=== PATIENT | male | born 1970 | race Caucasian/White ===

== ENCOUNTER 2020-11-15 10:55 | Inpatient (IN) | payer SELFPAY ==
[~2020-11-15 10:55] MED LIST: Iopamidol 370 76% 50 ML VIAL FS ONE; Iopamidol-370 76% 500 ML 1 ML ONE
[2020-11-15 12:41] LABS: #Eosinphils 0.1 thou/uL (0.0-0.7); #Lymphocytes 2.5 thou/uL (1.20-3.40); #Monocytes 1.1 thou/uL (0.11-0.59); #Neutrophils 13.5 thou/uL (1.40-6.50); %Basophils 0.2 % (0.0-1.0); %Eosinophils 0.8 % (0.0-10.0); %Lymphocytes 14.3 % (21.0-51.0); %Monocytes 6.3 % (0.0-10.0); %Neutrophils 78.4 % (42.0-75.0); Hemoglobin 18.4 g/dL (14.0-18.0); Mean Corpuscular HGB CONC 34.1 g/dL (32.0-36.0); Mean Corpuscular Hemoglobin 30.6 pg (27.0-31.0); Mean Corpuscular Volume 89.7 fL (78.0-98.0); Mean Platelet Volume 10.4 fL (7.4-10.4); Platelet Count 186 thou/uL (130-400); RBC Distribution Width 13.7 % (11.5-14.5); Red Blood Cell (RBC) Count 6.01 mill/uL (4.70-6.10); White Blood Cell (WBC) Count 17.2 thou/uL (4.8-10.8)
[2020-11-15 12:44] LABS: ALT (SGPT) 85 U/L (8-55); AST (SGOT) 51 U/L (5-34); Albumin 4.8 g/dL (3.5-5.0); Alkaline Phosphatase 91 U/L (40-110); Anion Gap 17 mmol/L (10-20); BUN (Urea Nitrogen) 20 mg/dL (8.4-25.7); Calc. Creatinine Clearance 0 mL/min (70-130); Carbon Dioxide 25 mmol/L (22-29); Chloride 98 mmol/L (98-107); Globulin 3.9 g/dL (2.4-3.5); Glucose 102 mg/dL (70-105); Potassium 3.8 mmol/L (3.5-5.1); Protein, Total 8.7 g/dL (6.0-8.3); Sodium 136 mmol/L (136-145)
[2020-11-15] MEDS ORDERED: Ondansetron PF 4 MG/2 ML Vial ONE ×2 (13:22→14:57)
[2020-11-15] MEDS ORDERED: Morphine 4 MG/ML VIAL ONE (14:57)
[2020-11-15] MEDS ORDERED: Ondansetron PF 4 MG/2 ML Vial IVP PRN (15:25)
[2020-11-15] MEDS ORDERED: Ondansetron ODT 4 MG TAB PO PRN (15:25)
[2020-11-15] MEDS ORDERED: Calcium Carbonate 500 MG ChewTAB PO PRN (15:34)
[2020-11-15 17:30] VITALS: BMI 32.1
[2020-11-15] MEDS: Dexamethasone 4 MG in Sodium Chloride 0.9% 50 ML IVPB SCH (18:30)
[2020-11-15 20:39] LABS: HBSAg Index 0.21 S/CO (0-0.99); HIV (1/2) Antibody/Antigen Non-Reactive (NonReactive); HIV 1/2 INDEX 0.12 S/CO (<1.00); Hep B Surf Ag Non-Reactive S/CO (NonReactive); Hep C IgG Ab Non-Reactive (NonReactive); Hep C Index 0.07 S/CO (0-0.79); Syphilis Antibody Nonreactive (Nonreactive); Syphilis Antibody Index 0.04 S/CO (<1.00 Non-Reactive)
[2020-11-15] MEDS: Famotidine 20 MG TAB PO SCH (20:49)
[2020-11-15 23:24] LABS: SARS-CoV-2 PCR NAA for Saliva Not Detected (NotDetected)
[2020-11-16] MEDS: Acetaminophen 325 MG TAB PO PRN ×3 (00:01→19:32)
[2020-11-16] MEDS: Dexamethasone 4 MG in Sodium Chloride 0.9% 50 ML IVPB SCH ×4 (00:02→17:43)
[2020-11-16 05:44] LABS: #Lymphocytes 1.7 thou/uL (1.20-3.40); #Monocytes 0.2 thou/uL (0.11-0.59); %Basophils 0.3 % (0.0-1.0); %Eosinophils 0.2 % (0.0-10.0); %Monocytes 1.7 % (0.0-10.0); %Neutrophils 83.8 % (42.0-75.0); Mean Corpuscular HGB CONC 32.7 g/dL (32.0-36.0); Mean Corpuscular Hemoglobin 29.4 pg (27.0-31.0); Mean Platelet Volume 10.6 fL (7.4-10.4); Platelet Count 165 thou/uL (130-400); RBC Distribution Width 13.5 % (11.5-14.5); Red Blood Cell (RBC) Count 5.79 mill/uL (4.70-6.10); White Blood Cell (WBC) Count 11.9 thou/uL (4.8-10.8)
[2020-11-16 06:07] LABS: ALT (SGPT) 70 U/L (8-55); AST (SGOT) 33 U/L (5-34); Albumin 4.3 g/dL (3.5-5.0); Alkaline Phosphatase 80 U/L (40-110); Anion Gap 14 mmol/L (10-20); BUN (Urea Nitrogen) 17 mg/dL (8.4-25.7); Bilirubin, Total 0.6 mg/dL (0.2-1.2); Calc. Creatinine Clearance 153 mL/min (70-130); Calcium 9.6 mg/dL (7.8-10.44); Carbon Dioxide 22 mmol/L (22-29); Chloride 103 mmol/L (98-107); Globulin 3.7 g/dL (2.4-3.5); Glucose 115 mg/dL (70-105); Potassium 4.5 mmol/L (3.5-5.1); Sodium 134 mmol/L (136-145)
[2020-11-16] MEDS ORDERED: Enoxaparin Sodium 40 MG/0.4 ML SYRINGE SC SCH (09:00)
[2020-11-16] MEDS: Famotidine 20 MG TAB PO SCH ×2 (09:30→20:58)
[2020-11-16] MEDS ORDERED: Magnevist 469MG/ML 20 ML VIAL ONE (10:35)
[2020-11-17] MEDS: Acetaminophen 325 MG TAB PO PRN (00:27)
[2020-11-17] MEDS: Dexamethasone 4 MG in Sodium Chloride 0.9% 50 ML IVPB SCH ×4 (00:28→19:08)
[2020-11-17 05:38] LABS: PTT 32.9 sec (22.9-36.1); Prothrombin Time 13.5 sec (12.0-14.7)
[2020-11-17] MEDS ORDERED: Fentanyl 100 MCG/2 ML VIAL ONE (07:45)
[2020-11-17] MEDS ORDERED: Midazolam HCl 2 mg/2 ml Vial ONE (07:45)
[2020-11-17] MEDS ORDERED: Sodium Bicarbonate 2.5 MEQ/5 ML VIAL ONE (07:45)
[2020-11-17] MEDS ORDERED: Ondansetron PF 4 MG/2 ML Vial ONE (08:09)
[2020-11-17] MEDS ORDERED: Diclofenac 1% 100 GM GEL TP PRN (11:07)
[2020-11-17] MEDS: Famotidine 20 MG TAB PO SCH ×2 (11:30→22:05)
[2020-11-17] MEDS ORDERED: Promethazine 25 MG TAB PO PRN (22:04)
[2020-11-18] MEDS ORDERED: Promethazine HCl 25 MG/ML VIAL IM PRN (00:17)
[2020-11-18] MEDS: Dexamethasone 4 MG in Sodium Chloride 0.9% 50 ML IVPB SCH ×3 (01:57→11:46)
[2020-11-18] MEDS: Famotidine 20 MG TAB PO SCH (07:59)
[2020-11-18] MEDS: Acetaminophen 325 MG TAB PO PRN (07:59)
[2020-11-18 12:37] VITALS: BP 157/88; TEMP 97.3
== END 2020-11-18 12:53 | disposition home or self-care (01) | DRG 54 ==
LOC: ERS 10:55 → 2SE 14:45
PROVIDERS: ADMIT Family Medicine; ATTEND Family Medicine
PROC: 0BBJ3ZX Excision of Left Lower Lung Lobe, Percutaneous Approach, Diagnostic (ICD-10-PCS; principal; 2020-11-17)
DX: C79.31 Secondary malignant neoplasm of brain (principal); I61.4 Nontraumatic intracerebral hemorrhage in cerebellum; Z20.822 Contact with and (suspected) exposure to COVID-19; G93.6 Cerebral edema; C78.02 Secondary malignant neoplasm of left lung; F17.210 Nicotine dependence, cigarettes, uncomplicated; R94.5 Abnormal results of liver function studies; R29.700 NIHSS score 0; Z85.038 Personal history of other malignant neoplasm of large intestine; Z85.048 Personal history of other malignant neoplasm of rectum, rectosigmoid junction, and anus; Z90.49 Acquired absence of other specified parts of digestive tract; Z80.52 Family history of malignant neoplasm of bladder; Z80.0 Family history of malignant neoplasm of digestive organs; Z80.8 Family history of malignant neoplasm of other organs or systems; Z82.49 Family history of ischemic heart disease and other diseases of the circulatory system; Z93.3 Colostomy status; Z92.21 Personal history of antineoplastic chemotherapy; Z92.3 Personal history of irradiation
CPT/HCPCS: 32408; 36415; 70450; 70553; 71045; 71260; 74177; 77012; 80053; 84484; 85025; 85610; 85730; 86707; 86780; 86803; 87340; 87389; 88305; 93005; 96374; 96375; A9579; J1100; J2250; J2270; J2405; J2550; J3010; Q0162; Q0169; Q9967; U0003; U0005

== ENCOUNTER 2020-11-26 10:29 | Inpatient (IN) | payer OTHER, SELFPAY ==
[2020-11-26] MEDS ORDERED: Ondansetron PF 4 MG/2 ML Vial ONE (11:09)
[2020-11-26 11:17] LABS: #Eosinphils 0.1 thou/uL (0.0-0.7); #Lymphocytes 2.2 thou/uL (1.20-3.40); #Monocytes 1.4 thou/uL (0.11-0.59); #Neutrophils 14.7 thou/uL (1.40-6.50); %Basophils 0.2 % (0.0-1.0); %Eosinophils 0.3 % (0.0-10.0); %Monocytes 7.8 % (0.0-10.0); %Neutrophils 79.8 % (42.0-75.0); Hemoglobin 17.2 g/dL (14.0-18.0); Mean Corpuscular HGB CONC 32.9 g/dL (32.0-36.0); Mean Corpuscular Hemoglobin 29.9 pg (27.0-31.0); Mean Platelet Volume 9.7 fL (7.4-10.4); Platelet Count 195 thou/uL (130-400); Red Blood Cell (RBC) Count 5.74 mill/uL (4.70-6.10); White Blood Cell (WBC) Count 18.5 thou/uL (4.8-10.8)
[2020-11-26 11:45] LABS: ALT (SGPT) 188 U/L (8-55); AST (SGOT) 61 U/L (5-34); Albumin 4.1 g/dL (3.5-5.0); Alkaline Phosphatase 90 U/L (40-110); Anion Gap 17 mmol/L (10-20); BUN (Urea Nitrogen) 22 mg/dL (8.4-25.7); Bilirubin, Total 0.5 mg/dL (0.2-1.2); Calc. Creatinine Clearance 0 mL/min (70-130); Calcium 9.7 mg/dL (7.8-10.44); Carbon Dioxide 26 mmol/L (22-29); Chloride 100 mmol/L (98-107); Globulin 3.6 g/dL (2.4-3.5); Glucose 99 mg/dL (70-105); Lipase 38 U/L (8-78); Potassium 4.5 mmol/L (3.5-5.1); Protein, Total 7.7 g/dL (6.0-8.3); Sodium 138 mmol/L (136-145)
[2020-11-26] MEDS ORDERED: Dexamethasone 1 MG TAB PO SCH (15:00)
[2020-11-26] MEDS ORDERED: Acetaminophen 325 MG TAB PO PRN (15:15)
[2020-11-26] MEDS ORDERED: Ondansetron PF 4 MG/2 ML Vial IVP PRN (15:15)
[2020-11-26] MEDS ORDERED: Ondansetron ODT 4 MG TAB SL PRN (15:15)
[2020-11-26] MEDS ORDERED: Promethazine HCl 25 MG SUPP PR PRN (15:16)
[2020-11-26] MEDS ORDERED: Bisacodyl 5 MG TAB PO PRN (15:16)
[2020-11-26] MEDS ORDERED: Polyethylene Glycol 3350 17 GM Packet PO PRN (15:16)
[2020-11-26] MEDS ORDERED: Polyethylene Glycol 3350 17 GM Packet PO SCH (15:16)
[2020-11-26] MEDS ORDERED: Ondansetron ODT 4 MG TAB PO PRN (15:16)
[2020-11-26] MEDS ORDERED: Docusate 100 MG CAP PO PRN (15:16)
[2020-11-26] MEDS ORDERED: Lactated Ringer's 1,000 ML IV SCH (15:16)
[2020-11-26] MEDS: Calcium Carbonate 500 MG ChewTAB PO PRN ×2 (15:29→20:57)
[2020-11-26 15:33] VITALS: BMI 36.9
[2020-11-26] MEDS: Lactated Ringer's 1,000 ML IV SCH (17:24)
[2020-11-26] MEDS: Ondansetron PF 4 MG/2 ML Vial IVP PRN (20:56)
[2020-11-26] MEDS: Famotidine 20 MG TAB PO SCH (21:03)
[2020-11-26] MEDS: Dexamethasone 4 mg/ml Vial SLOW IVP SCH (21:21)
[2020-11-26 22:07] LABS: Prothrombin Time 13.2 sec (12.0-14.7)
[2020-11-26 22:08] LABS: PTT 27.7 sec (22.9-36.1)
[2020-11-27] MEDS: Lactated Ringer's 1,000 ML IV SCH ×4 (02:35→20:24)
[2020-11-27] MEDS: Dexamethasone 4 mg/ml Vial SLOW IVP SCH ×4 (03:07→20:09)
[2020-11-27 04:51] LABS: #Monocytes 0.4 thou/uL (0.11-0.59); #Neutrophils 11.8 thou/uL (1.40-6.50); %Basophils 0.1 % (0.0-1.0); %Eosinophils 0.2 % (0.0-10.0); %Lymphocytes 13.8 % (21.0-51.0); %Monocytes 2.7 % (0.0-10.0); %Neutrophils 83.2 % (42.0-75.0); Hemoglobin 15.3 g/dL (14.0-18.0); Mean Corpuscular HGB CONC 32.9 g/dL (32.0-36.0); Mean Corpuscular Hemoglobin 30.2 pg (27.0-31.0); Mean Corpuscular Volume 91.6 fL (78.0-98.0); Mean Platelet Volume 9.6 fL (7.4-10.4); Platelet Count 176 thou/uL (130-400); Red Blood Cell (RBC) Count 5.08 mill/uL (4.70-6.10); White Blood Cell (WBC) Count 14.2 thou/uL (4.8-10.8)
[2020-11-27 05:06] LABS: Anion Gap 14 mmol/L (10-20); BUN (Urea Nitrogen) 20 mg/dL (8.4-25.7); Calc. Creatinine Clearance 145 mL/min (70-130); Calcium 8.9 mg/dL (7.8-10.44); Carbon Dioxide 24 mmol/L (22-29); Chloride 100 mmol/L (98-107); Glucose 122 mg/dL (70-105); Potassium 4.4 mmol/L (3.5-5.1); Sodium 134 mmol/L (136-145)
[2020-11-27] MEDS: Famotidine 20 MG TAB PO SCH ×2 (09:07→20:22)
[2020-11-27] MEDS: Bisacodyl 5 MG TAB PO SCH ×2 (09:07→20:22)
[2020-11-27] MEDS: Promethazine HCl 6.25 MG/5 ML Syrup PO PRN (09:07)
[2020-11-27] MEDS: Ondansetron PF 4 MG/2 ML Vial IVP PRN (20:09)
[2020-11-27] MEDS: Calcium Carbonate 500 MG ChewTAB PO PRN (20:15)
[2020-11-27 21:14] LABS: SARS-CoV-2 PCR NAA for Saliva Not Detected (NotDetected)
[2020-11-28] MEDS: Dexamethasone 4 mg/ml Vial SLOW IVP SCH ×4 (02:31→21:55)
[2020-11-28] MEDS: Lactated Ringer's 1,000 ML IV SCH ×3 (02:31→17:08)
[2020-11-28] MEDS ORDERED: Ondansetron PF 4 MG/2 ML Vial ONE ×2 (10:20→11:31)
[2020-11-28] MEDS: Famotidine 20 MG TAB PO SCH ×2 (10:36→21:55)
[2020-11-28] MEDS: Bisacodyl 5 MG TAB PO SCH ×2 (10:36→21:55)
[2020-11-28] MEDS ORDERED: CEFAZOLIN 2 GM in Premix Bag 1 BAG IVPB SCH (11:00)
[2020-11-28] MEDS ORDERED: Bacitracin Zinc Ointment 30 gm TUBE ONE (11:05)
[2020-11-28] MEDS ORDERED: Fentanyl 100 MCG/2 ML VIAL ONE ×5 (11:15→14:53)
[2020-11-28] MEDS ORDERED: Rocuronium Bromide 10 MG/ML (10ML VIAL) ONE (11:31)
[2020-11-28] MEDS ORDERED: diphenhydrAMINE 50 MG/ML VIAL ONE (11:31)
[2020-11-28] MEDS ORDERED: PROPOFOL 200 MG/20 ML VIAL ONE (11:31)
[2020-11-28] MEDS ORDERED: PHENYLEPHRINE-NS 100 MCG/ML 10 ML SYRINGE ONE (11:31)
[2020-11-28] MEDS ORDERED: Dexamethasone 20 MG/5 ML VIAL ONE (11:31)
[2020-11-28] MEDS ORDERED: Rocuronium Bromide 50 MG/5 ML VIAL ONE (12:17)
[2020-11-28] MEDS ORDERED: SUGAMMADEX SODIUM 200 MG/2 ML VIAL ONE (13:31)
[2020-11-28] MEDS ORDERED: Acetaminophen 325 MG TAB PO PRN (13:41)
[2020-11-28] MEDS ORDERED: niCARdipine 25 MG in Sodium Chloride 0.9% 250 ML 250 ML IVPB SCH (13:45)
[2020-11-28] MEDS ORDERED: Promethazine HCl 25 MG/ML VIAL IM PRN (13:53)
[2020-11-28] MEDS ORDERED: Promethazine HCl 25 MG/ML VIAL IVPB PRN (13:53)
[2020-11-28] MEDS ORDERED: Ondansetron HCl/PF 4 MG/2 ML Vial IVP PRN (13:53)
[2020-11-28] MEDS ORDERED: HYDROmorphone 2 MG/ML VIAL SLOW IVP PRN (13:53)
[2020-11-28] MEDS ORDERED: Morphine Sulfate 2 MG/ML SYRINGE SLOW IVP PRN (13:53)
[2020-11-28] MEDS ORDERED: PACU-Morphine 4MG/ML VIAL SLOW IVP PRN (13:53)
[2020-11-28] MEDS ORDERED: Meperidine HCl/PF 25 MG/ML VIAL SLOW IVP PRN (13:53)
[2020-11-28] MEDS ORDERED: HYDROmorphone 0.5 MG/0.5 ML SYRINGE ONE ×2 (15:36→16:04)
[2020-11-28] MEDS: Acetaminophen/Codeine 30-300mg Tablet PO PRN ×2 (18:04→21:56)
[2020-11-28] MEDS: Ondansetron PF 4 MG/2 ML Vial IVP PRN (18:05)
[2020-11-28] MEDS: HYDROcodone/Acetaminophen 10/325 mg Tablet PO PRN (19:42)
[2020-11-28] MEDS: Morphine 2 MG/ML VIAL SLOW IVP PRN (23:14)
[2020-11-29] MEDS: HYDROcodone/Acetaminophen 10/325 mg Tablet PO PRN ×3 (01:43→20:31)
[2020-11-29] MEDS: Lactated Ringer's 1,000 ML IV SCH ×2 (01:50→10:14)
[2020-11-29 03:44] LABS: Anion Gap 12 mmol/L (10-20); BUN (Urea Nitrogen) 23 mg/dL (8.4-25.7); Calc. Creatinine Clearance 164 mL/min (70-130); Calcium 7.6 mg/dL (7.8-10.44); Carbon Dioxide 23 mmol/L (22-29); Chloride 101 mmol/L (98-107); Glucose 126 mg/dL (70-105); Potassium 4.2 mmol/L (3.5-5.1); Sodium 132 mmol/L (136-145)
[2020-11-29 03:52] LABS: Band 3 % (5-11); Hemoglobin 15.6 g/dL (14.0-18.0); Lymphocytes 5 % (21-51); MDiff Complete? YES; Mean Corpuscular HGB CONC 33.7 g/dL (32.0-36.0); Mean Corpuscular Hemoglobin 30.6 pg (27.0-31.0); Mean Platelet Volume 9.1 fL (7.4-10.4); Monocytes 1 % (0-10); Neutrophil 91 % (42-75); Platelet Count 181 thou/uL (130-400); RBC Distribution Width 13.6 % (11.5-14.5); White Blood Cell (WBC) Count 20.2 thou/uL (4.8-10.8)
[2020-11-29] MEDS: Dexamethasone 4 mg/ml Vial SLOW IVP SCH ×4 (03:53→20:21)
[2020-11-29] MEDS: Morphine 2 MG/ML VIAL SLOW IVP PRN ×2 (05:14→14:48)
[2020-11-29] MEDS ORDERED: traMADol HCl 50 MG TAB PO PRN (06:33)
[2020-11-29] MEDS: Bisacodyl 5 MG TAB PO SCH ×2 (08:23→20:49)
[2020-11-29] MEDS: Famotidine 20 MG TAB PO SCH ×2 (08:24→20:21)
[2020-11-29] MEDS: traMADol HCl 50 MG TAB PO PRN ×2 (08:25→18:05)
[2020-11-30] MEDS: traMADol HCl 50 MG TAB PO PRN ×4 (01:59→19:37)
[2020-11-30] MEDS: Ondansetron PF 4 MG/2 ML Vial IVP PRN ×4 (02:04→23:49)
[2020-11-30] MEDS: Dexamethasone 4 mg/ml Vial SLOW IVP SCH ×4 (02:05→21:29)
[2020-11-30] MEDS: Morphine 2 MG/ML VIAL SLOW IVP PRN (02:32)
[2020-11-30] MEDS: HYDROcodone/Acetaminophen 10/325 mg Tablet PO PRN ×4 (05:51→23:49)
[2020-11-30] MEDS: Promethazine HCl 6.25 MG/5 ML Syrup PO PRN (05:51)
[2020-11-30 07:25] LABS: Hemoglobin 15.3 g/dL (14.0-18.0); Mean Corpuscular HGB CONC 32.1 g/dL (32.0-36.0); Mean Corpuscular Hemoglobin 29.7 pg (27.0-31.0); Mean Corpuscular Volume 92.6 fL (78.0-98.0); Mean Platelet Volume 9.1 fL (7.4-10.4); Platelet Count 162 thou/uL (130-400); Red Blood Cell (RBC) Count 5.16 mill/uL (4.70-6.10)
[2020-11-30 07:36] LABS: Anion Gap 12 mmol/L (10-20); BUN (Urea Nitrogen) 18 mg/dL (8.4-25.7); Calc. Creatinine Clearance 179 mL/min (70-130); Calcium 8.2 mg/dL (7.8-10.44); Carbon Dioxide 25 mmol/L (22-29); Chloride 98 mmol/L (98-107); Glucose 122 mg/dL (70-105); Potassium 4.6 mmol/L (3.5-5.1); Sodium 130 mmol/L (136-145)
[2020-11-30] MEDS: Famotidine 20 MG TAB PO SCH ×2 (07:38→21:29)
[2020-11-30] MEDS: Bisacodyl 5 MG TAB PO SCH ×2 (07:39→21:28)
[2020-11-30 07:49] LABS: Band 1 % (5-11); Lymphocytes 9 % (21-51); MDiff Complete? YES; Monocytes 6 % (0-10); Neutrophil 84 % (42-75); RBC Morphology Normal
[2020-12-01] MEDS: Dexamethasone 4 mg/ml Vial SLOW IVP SCH ×4 (03:22→20:40)
[2020-12-01] MEDS: traMADol HCl 50 MG TAB PO PRN (03:22)
[2020-12-01] MEDS: HYDROcodone/Acetaminophen 10/325 mg Tablet PO PRN ×2 (05:49→17:09)
[2020-12-01] MEDS: Ondansetron PF 4 MG/2 ML Vial IVP PRN ×2 (05:49→09:30)
[2020-12-01 08:11] LABS: Anion Gap 13 mmol/L (10-20); BUN (Urea Nitrogen) 18 mg/dL (8.4-25.7); Calc. Creatinine Clearance 198 mL/min (70-130); Calcium 8.3 mg/dL (7.8-10.44); Carbon Dioxide 21 mmol/L (22-29); Chloride 100 mmol/L (98-107); Glucose 98 mg/dL (70-105); Potassium 4.7 mmol/L (3.5-5.1); Sodium 129 mmol/L (136-145)
[2020-12-01] MEDS: Bisacodyl 5 MG TAB PO SCH ×2 (09:34→20:40)
[2020-12-01] MEDS: Famotidine 20 MG TAB PO SCH ×2 (09:38→20:38)
[2020-12-01] MEDS: Scopolamine 1.5 mg/72 hour Patch TD SCH (11:55)
[2020-12-01] MEDS ORDERED: Ondansetron ODT 8 MG TAB PO PRN (11:58)
[2020-12-01] MEDS: Promethazine HCl 6.25 MG/5 ML Syrup PO PRN (12:46)
[2020-12-01] MEDS: Acetaminophen/Codeine 30-300mg Tablet PO PRN (20:39)
[2020-12-01] MEDS: Ondansetron HCl/PF 8 MG in Sodium Chloride 0.9% 50 ML IVPB PRN (21:03)
[2020-12-02] MEDS: Dexamethasone 4 mg/ml Vial SLOW IVP SCH ×4 (03:16→20:52)
[2020-12-02] MEDS: Ondansetron HCl/PF 8 MG in Sodium Chloride 0.9% 50 ML IVPB PRN (05:06)
[2020-12-02 05:44] LABS: Anion Gap 15 mmol/L (10-20); BUN (Urea Nitrogen) 18 mg/dL (8.4-25.7); Calc. Creatinine Clearance 190 mL/min (70-130); Calcium 8.6 mg/dL (7.8-10.44); Carbon Dioxide 20 mmol/L (22-29); Chloride 99 mmol/L (98-107); Glucose 102 mg/dL (70-105); Sodium 130 mmol/L (136-145)
[2020-12-02] MEDS ORDERED: Ondansetron ODT 8 MG TAB PO PRN (06:21)
[2020-12-02] MEDS: Bisacodyl 5 MG TAB PO SCH ×2 (09:17→20:52)
[2020-12-02] MEDS: HYDROcodone/Acetaminophen 10/325 mg Tablet PO PRN ×2 (09:17→14:57)
[2020-12-02] MEDS: Famotidine 20 MG TAB PO SCH ×2 (09:19→20:52)
[2020-12-02] MEDS: Promethazine HCl 6.25 MG/5 ML Syrup PO PRN (09:20)
[2020-12-02] MEDS: Ondansetron ODT 8 MG TAB PO SCH ×2 (14:18→20:52)
[2020-12-03] MEDS: Ondansetron ODT 8 MG TAB PO SCH ×3 (04:34→20:55)
[2020-12-03] MEDS: Dexamethasone 4 mg/ml Vial SLOW IVP SCH ×4 (04:34→20:56)
[2020-12-03 05:13] LABS: Anion Gap 15 mmol/L (10-20); BUN (Urea Nitrogen) 23 mg/dL (8.4-25.7); Calc. Creatinine Clearance 166 mL/min (70-130); Calcium 8.6 mg/dL (7.8-10.44); Carbon Dioxide 18 mmol/L (22-29); Chloride 105 mmol/L (98-107); Glucose 105 mg/dL (70-105); Potassium 4.5 mmol/L (3.5-5.1); Sodium 133 mmol/L (136-145)
[2020-12-03] MEDS ORDERED: Ondansetron ODT 8 MG TAB PO PRN (07:16)
[2020-12-03] MEDS: Bisacodyl 5 MG TAB PO SCH (09:45)
[2020-12-03] MEDS: Famotidine 20 MG TAB PO SCH ×2 (09:46→20:56)
[2020-12-03] MEDS ORDERED: Ziprasidone 20 MG VIAL IM PRN ×2 (11:29→11:30)
[2020-12-03] MEDS ORDERED: Ziprasidone 20 MG CAP PO SCH (11:30)
[2020-12-04] MEDS: Dexamethasone 4 mg/ml Vial SLOW IVP SCH ×4 (03:37→20:43)
[2020-12-04] MEDS: Ondansetron ODT 8 MG TAB PO SCH (03:38)
[2020-12-04 05:54] LABS: Anion Gap 14 mmol/L (10-20); BUN (Urea Nitrogen) 18 mg/dL (8.4-25.7); Calc. Creatinine Clearance 172 mL/min (70-130); Calcium 8.2 mg/dL (7.8-10.44); Carbon Dioxide 21 mmol/L (22-29); Chloride 103 mmol/L (98-107); Glucose 111 mg/dL (70-105); Potassium 4.8 mmol/L (3.5-5.1); Sodium 133 mmol/L (136-145)
[2020-12-04] MEDS ORDERED: Ondansetron ODT 4 MG TAB PO PRN (05:54)
[2020-12-04] MEDS: Famotidine 20 MG TAB PO SCH ×2 (09:03→20:43)
[2020-12-04] MEDS: Scopolamine 1.5 mg/72 hour Patch TD SCH (11:07)
[2020-12-05] MEDS: Dexamethasone 4 mg/ml Vial SLOW IVP SCH (03:41)
[2020-12-05] MEDS: HYDROcodone/Acetaminophen 10/325 mg Tablet PO PRN (03:42)
[2020-12-05] MEDS: Famotidine 20 MG TAB PO SCH (09:23)
[2020-12-05] MEDS ORDERED: Dexamethasone 4 mg/ml Vial SLOW IVP SCH (12:00)
[2020-12-05 15:47] VITALS: BP 130/68; TEMP 97.7
== END 2020-12-05 16:54 | disposition home health service (06) | DRG 25 ==
LOC: ERS 10:29 → 2SE 12:23 → OBSVTOIN 11-27 08:54 → CCU 11-28 16:22 → 2SE 11-30 19:22
PROVIDERS: ADMIT Family Medicine; ATTEND Family Medicine
PROC: 00BC0ZZ Excision of Cerebellum, Open Approach (ICD-10-PCS; principal; 2020-11-28)
DX: C79.31 Secondary malignant neoplasm of brain (principal); I61.4 Nontraumatic intracerebral hemorrhage in cerebellum; C18.9 Malignant neoplasm of colon, unspecified; E22.2 Syndrome of inappropriate secretion of antidiuretic hormone; Z20.822 Contact with and (suspected) exposure to COVID-19; K59.00 Constipation, unspecified; R91.8 Other nonspecific abnormal finding of lung field; F17.210 Nicotine dependence, cigarettes, uncomplicated; E86.1 Hypovolemia; R45.850 Homicidal ideations; R45.1 Restlessness and agitation; Z79.899 Other long term (current) drug therapy; Z79.52 Long term (current) use of systemic steroids; Z90.49 Acquired absence of other specified parts of digestive tract; Z80.52 Family history of malignant neoplasm of bladder; Z80.8 Family history of malignant neoplasm of other organs or systems; Z80.0 Family history of malignant neoplasm of digestive organs; Z82.49 Family history of ischemic heart disease and other diseases of the circulatory system; Z98.49 Cataract extraction status, unspecified eye
CPT/HCPCS: 36415; 70450; 80048; 80053; 83690; 83930; 83935; 84300; 85025; 85610; 85730; 88307; 88331; 88341; 88342; 93005; 93010; 96374; 96375; 96376; G0378; J0690; J1100; J1170; J1200; J2270; J2405; J2704; J3010; J3370; J8540; Q0162; Q0169; U0003; U0005

== ENCOUNTER 2020-12-27 11:52 | Inpatient (IN) | payer OTHER ==
[2020-12-27 12:51] LABS: #Lymphocytes 1.6 thou/uL (1.20-3.40); #Monocytes 0.6 thou/uL (0.11-0.59); #Neutrophils 9.3 thou/uL (1.40-6.50); %Basophils 0.1 % (0.0-1.0); %Eosinophils 0.3 % (0.0-10.0); %Lymphocytes 13.9 % (21.0-51.0); %Monocytes 4.8 % (0.0-10.0); %Neutrophils 80.8 % (42.0-75.0); Hemoglobin 17.1 g/dL (14.0-18.0); Mean Corpuscular HGB CONC 33.9 g/dL (32.0-36.0); Mean Corpuscular Hemoglobin 30.7 pg (27.0-31.0); Mean Corpuscular Volume 90.6 fL (78.0-98.0); Mean Platelet Volume 8.7 fL (7.4-10.4); Platelet Count 215 thou/uL (130-400); RBC Distribution Width 13.7 % (11.5-14.5); Red Blood Cell (RBC) Count 5.57 mill/uL (4.70-6.10); White Blood Cell (WBC) Count 11.5 thou/uL (4.8-10.8)
[2020-12-27 13:07] LABS: ALT (SGPT) 98 U/L (8-55); AST (SGOT) 35 U/L (5-34); Albumin 4.1 g/dL (3.5-5.0); Alkaline Phosphatase 117 U/L (40-110); Anion Gap 13 mmol/L (10-20); BUN (Urea Nitrogen) 17 mg/dL (8.4-25.7); Bilirubin, Total 0.8 mg/dL (0.2-1.2); Calc. Creatinine Clearance 0 mL/min (70-130); Calcium 9.5 mg/dL (7.8-10.44); Carbon Dioxide 23 mmol/L (22-29); Chloride 102 mmol/L (98-107); Globulin 3.6 g/dL (2.4-3.5); Glucose 117 mg/dL (70-105); Protein, Total 7.7 g/dL (6.0-8.3); Sodium 134 mmol/L (136-145)
[2020-12-27] MEDS ORDERED: diphenhydrAMINE 50 MG/ML VIAL ONE (14:07)
[2020-12-27] MEDS ORDERED: Metoclopramide 10 MG/10 ML UDCUP ONE ×2 (14:07)
[2020-12-27] MEDS ORDERED: Metoclopramide HCl 10 MG/2 ML VIAL ONE (14:07)
[2020-12-27] MEDS ORDERED: Dexamethasone 10 MG/ML VIAL ONE (14:07)
[2020-12-27] MEDS ORDERED: Ondansetron PF 4 MG/2 ML Vial IVP PRN (17:29)
[2020-12-27] MEDS ORDERED: Bisacodyl 5 MG TAB PO PRN (17:29)
[2020-12-27] MEDS ORDERED: Senokot S 8.6-50 MG TAB PO PRN (17:29)
[2020-12-27] MEDS ORDERED: Lactated Ringer's 1,000 ML IV SCH (17:45)
[2020-12-27 17:50] VITALS: BMI 27.6
[2020-12-27] MEDS: Ketorolac Tromethamine 30 MG/ML VIAL IVP PRN (18:14)
[2020-12-27] MEDS: Dexamethasone 4 mg/ml Vial SLOW IVP SCH (19:39)
[2020-12-27] MEDS: Famotidine/PF 20 mg/2ml Vial SLOW IVP SCH (20:51)
[2020-12-27] MEDS ORDERED: Ketorolac Tromethamine 30 MG/ML VIAL IVP SCH (23:15)
[2020-12-27] MEDS: Melatonin 3 MG TAB PO PRN (23:59)
[2020-12-28] MEDS: Dexamethasone 4 mg/ml Vial SLOW IVP SCH ×4 (06:06→19:46)
[2020-12-28 06:20] LABS: #Eosinphils 0.1 thou/uL (0.0-0.7); #Lymphocytes 1.6 thou/uL (1.20-3.40); #Monocytes 0.5 thou/uL (0.11-0.59); #Neutrophils 7.5 thou/uL (1.40-6.50); %Basophils 0.1 % (0.0-1.0); %Eosinophils 0.5 % (0.0-10.0); %Lymphocytes 16.8 % (21.0-51.0); %Monocytes 4.8 % (0.0-10.0); %Neutrophils 77.9 % (42.0-75.0); Hemoglobin 14.5 g/dL (14.0-18.0); Mean Corpuscular HGB CONC 33.4 g/dL (32.0-36.0); Mean Corpuscular Hemoglobin 30.3 pg (27.0-31.0); Mean Corpuscular Volume 90.8 fL (78.0-98.0); Platelet Count 204 thou/uL (130-400); RBC Distribution Width 13.6 % (11.5-14.5); Red Blood Cell (RBC) Count 4.77 mill/uL (4.70-6.10); White Blood Cell (WBC) Count 9.7 thou/uL (4.8-10.8)
[2020-12-28] MEDS: Ketorolac Tromethamine 30 MG/ML VIAL IVP PRN (07:51)
[2020-12-28] MEDS: Metoclopramide HCl 10 MG/2 ML VIAL IVP PRN (07:52)
[2020-12-28] MEDS: Famotidine/PF 20 mg/2ml Vial SLOW IVP SCH ×2 (09:29→19:46)
[2020-12-28 13:18] LABS: ALT (SGPT) 109 U/L (8-55); AST (SGOT) 37 U/L (5-34); Albumin 3.6 g/dL (3.5-5.0); Alkaline Phosphatase 96 U/L (40-110); Anion Gap 12 mmol/L (10-20); BUN (Urea Nitrogen) 22 mg/dL (8.4-25.7); Bilirubin, Total 0.6 mg/dL (0.2-1.2); Calc. Creatinine Clearance 153 mL/min (70-130); Calcium 8.7 mg/dL (7.8-10.44); Carbon Dioxide 21 mmol/L (22-29); Chloride 104 mmol/L (98-107); Globulin 2.9 g/dL (2.4-3.5); Glucose 179 mg/dL (70-105); Potassium 3.8 mmol/L (3.5-5.1); Protein, Total 6.5 g/dL (6.0-8.3); Sodium 133 mmol/L (136-145)
[2020-12-28] MEDS: HYDROcodone/Acetaminophen 7.5/325 mg Tablet PO PRN ×2 (14:39→19:49)
[2020-12-29] MEDS: Dexamethasone 4 mg/ml Vial SLOW IVP SCH ×2 (02:20→09:32)
[2020-12-29 05:36] LABS: ALT (SGPT) 126 U/L (8-55); AST (SGOT) 43 U/L (5-34); Albumin 3.3 g/dL (3.5-5.0); Alkaline Phosphatase 106 U/L (40-110); Anion Gap 11 mmol/L (10-20); BUN (Urea Nitrogen) 14 mg/dL (8.4-25.7); Bilirubin, Total 0.3 mg/dL (0.2-1.2); Calc. Creatinine Clearance 168 mL/min (70-130); Calcium 8.2 mg/dL (7.8-10.44); Carbon Dioxide 22 mmol/L (22-29); Chloride 107 mmol/L (98-107); Globulin 2.8 g/dL (2.4-3.5); Glucose 131 mg/dL (70-105); Protein, Total 6.1 g/dL (6.0-8.3); Sodium 136 mmol/L (136-145)
[2020-12-29 06:54] LABS: Hemoglobin A1c 5.7 % (4.0-6.0)
[2020-12-29] MEDS: HYDROcodone/Acetaminophen 7.5/325 mg Tablet PO PRN ×4 (09:31→23:17)
[2020-12-29] MEDS: Famotidine/PF 20 mg/2ml Vial SLOW IVP SCH ×2 (09:32→21:10)
[2020-12-29] MEDS: Dexamethasone 4 MG TAB PO SCH ×2 (13:11→21:10)
[2020-12-29] MEDS ORDERED: Dexamethasone 4 MG TAB PO SCH (14:00)
[2020-12-29] MEDS: Metoclopramide HCl 10 MG/2 ML VIAL IVP PRN (14:41)
[2020-12-29] MEDS ORDERED: HYDROcodone/Acetaminophen 5/325 mg Tablet PO SCH (14:45)
[2020-12-30] MEDS: Ondansetron HCl/PF 8 MG in Sodium Chloride 0.9% 50 ML IVPB PRN ×2 (01:24→12:51)
[2020-12-30] MEDS: Dexamethasone 4 MG TAB PO SCH ×4 (03:13→20:06)
[2020-12-30] MEDS: HYDROcodone/Acetaminophen 7.5/325 mg Tablet PO PRN ×4 (03:15→20:07)
[2020-12-30] MEDS: Metoclopramide HCl 10 MG/2 ML VIAL IVP PRN (08:18)
[2020-12-30] MEDS: Famotidine/PF 20 mg/2ml Vial SLOW IVP SCH ×2 (09:07→20:06)
[2020-12-31] MEDS: Melatonin 3 MG TAB PO PRN (00:29)
[2020-12-31] MEDS: HYDROcodone/Acetaminophen 7.5/325 mg Tablet PO PRN ×4 (00:30→20:26)
[2020-12-31] MEDS: Metoclopramide HCl 10 MG/2 ML VIAL IVP PRN ×3 (05:03→20:20)
[2020-12-31] MEDS: Famotidine/PF 20 mg/2ml Vial SLOW IVP SCH ×2 (08:11→20:20)
[2020-12-31] MEDS: Dexamethasone 4 MG TAB PO SCH ×3 (08:11→20:26)
[2020-12-31] MEDS: Ondansetron HCl/PF 8 MG in Sodium Chloride 0.9% 50 ML IVPB PRN (08:29)
[2021-01-01] MEDS: Melatonin 3 MG TAB PO PRN (00:12)
[2021-01-01] MEDS: HYDROcodone/Acetaminophen 7.5/325 mg Tablet PO PRN ×3 (00:12→20:07)
[2021-01-01] MEDS: Metoclopramide HCl 10 MG/2 ML VIAL IVP PRN (06:15)
[2021-01-01] MEDS: Famotidine/PF 20 mg/2ml Vial SLOW IVP SCH ×2 (09:12→20:06)
[2021-01-01] MEDS: Dexamethasone 4 MG TAB PO SCH ×3 (09:12→20:08)
[2021-01-02] MEDS: Melatonin 3 MG TAB PO PRN ×2 (00:55→21:32)
[2021-01-02] MEDS: HYDROcodone/Acetaminophen 7.5/325 mg Tablet PO PRN ×4 (00:56→21:32)
[2021-01-02 06:05] LABS: #Lymphocytes 1.3 thou/uL (1.20-3.40); #Neutrophils 10.1 thou/uL (1.40-6.50); %Basophils 0.1 % (0.0-1.0); %Eosinophils 0.3 % (0.0-10.0); %Lymphocytes 10.2 % (21.0-51.0); %Monocytes 7.7 % (0.0-10.0); %Neutrophils 81.7 % (42.0-75.0); Hemoglobin 15.6 g/dL (14.0-18.0); Mean Corpuscular HGB CONC 32.6 g/dL (32.0-36.0); Mean Corpuscular Hemoglobin 29.7 pg (27.0-31.0); Mean Corpuscular Volume 91.3 fL (78.0-98.0); Platelet Count 186 thou/uL (130-400); RBC Distribution Width 13.9 % (11.5-14.5); Red Blood Cell (RBC) Count 5.26 mill/uL (4.70-6.10); White Blood Cell (WBC) Count 12.3 thou/uL (4.8-10.8)
[2021-01-02 06:26] LABS: ALT (SGPT) 146 U/L (8-55); AST (SGOT) 46 U/L (5-34); Albumin 3.4 g/dL (3.5-5.0); Alkaline Phosphatase 115 U/L (40-110); Anion Gap 13 mmol/L (10-20); BUN (Urea Nitrogen) 21 mg/dL (8.4-25.7); Bilirubin, Total 0.3 mg/dL (0.2-1.2); Calc. Creatinine Clearance 173 mL/min (70-130); Calcium 8.4 mg/dL (7.8-10.44); Carbon Dioxide 22 mmol/L (22-29); Chloride 106 mmol/L (98-107); Globulin 2.8 g/dL (2.4-3.5); Glucose 120 mg/dL (70-105); Potassium 4.5 mmol/L (3.5-5.1); Protein, Total 6.2 g/dL (6.0-8.3); Sodium 136 mmol/L (136-145)
[2021-01-02] MEDS: Famotidine/PF 20 mg/2ml Vial SLOW IVP SCH (07:56)
[2021-01-02] MEDS: Ondansetron HCl/PF 8 MG in Sodium Chloride 0.9% 50 ML IVPB PRN (08:44)
[2021-01-02] MEDS: Dexamethasone 4 MG TAB PO SCH ×4 (09:00→21:32)
[2021-01-02] MEDS ORDERED: Ondansetron ODT 8 MG TAB PO PRN (09:20)
[2021-01-02] MEDS ORDERED: Famotidine 20 MG TAB PO PRN (09:22)
[2021-01-02] MEDS: Metoclopramide HCl 10 MG TAB PO SCH ×3 (11:43→21:32)
[2021-01-02] MEDS: Ondansetron ODT 8 MG TAB PO PRN (14:48)
[2021-01-02] MEDS ORDERED: Ondansetron PF 4 MG/2 ML Vial IVP PRN (16:29)
[2021-01-02] MEDS ORDERED: Famotidine 20 MG TAB PO SCH (21:00)
[2021-01-03] MEDS: Metoclopramide HCl 10 MG TAB PO SCH ×4 (06:36→21:12)
[2021-01-03] MEDS: Dexamethasone 4 MG TAB PO SCH ×4 (08:05→21:12)
[2021-01-03] MEDS: Famotidine 20 MG TAB PO SCH ×2 (08:05→21:12)
[2021-01-03] MEDS: HYDROcodone/Acetaminophen 7.5/325 mg Tablet PO PRN (08:07)
[2021-01-03] MEDS ORDERED: Senokot S 8.6-50 MG TAB PO SCH (09:30)
[2021-01-03] MEDS ORDERED: Bisacodyl 5 MG TAB PO SCH (09:30)
[2021-01-03] MEDS: Scopolamine 1.5 mg/72 hour Patch TD SCH (10:10)
[2021-01-03] MEDS: Ondansetron PF 4 MG/2 ML Vial IVP PRN ×2 (12:08→17:46)
[2021-01-03] MEDS: Ondansetron ODT 8 MG TAB PO PRN (21:11)
[2021-01-03] MEDS ORDERED: Calcium Carbonate 500 MG ChewTAB PO PRN (21:39)
[2021-01-04] MEDS: Senokot S 8.6-50 MG TAB PO SCH ×2 (07:56→21:03)
[2021-01-04] MEDS: Metoclopramide HCl 10 MG TAB PO SCH ×4 (07:57→20:59)
[2021-01-04] MEDS: Dexamethasone 4 MG TAB PO SCH ×4 (07:57→20:59)
[2021-01-04] MEDS: Famotidine 20 MG TAB PO SCH ×2 (07:57→20:59)
[2021-01-04] MEDS: Bisacodyl 5 MG TAB PO SCH (07:57)
[2021-01-04] MEDS: Ondansetron ODT 8 MG TAB PO SCH ×3 (11:21→20:59)
[2021-01-04] MEDS: Melatonin 3 MG TAB PO PRN (20:59)
[2021-01-05] MEDS: Metoclopramide HCl 10 MG TAB PO SCH ×4 (08:54→20:59)
[2021-01-05] MEDS: Bisacodyl 5 MG TAB PO SCH (09:22)
[2021-01-05] MEDS: Dexamethasone 4 MG TAB PO SCH ×4 (09:22→20:59)
[2021-01-05] MEDS: Senokot S 8.6-50 MG TAB PO SCH ×2 (09:22→20:59)
[2021-01-05] MEDS: Famotidine 20 MG TAB PO SCH ×2 (09:22→20:59)
[2021-01-05] MEDS: Polyethylene Glycol 3350 17 GM Packet PO SCH (09:23)
[2021-01-05] MEDS: HYDROcodone/Acetaminophen 7.5/325 mg Tablet PO PRN (12:34)
[2021-01-05] MEDS: Ondansetron ODT 8 MG TAB PO SCH (20:59)
[2021-01-06] MEDS: Ondansetron ODT 8 MG TAB PO SCH (08:15)
[2021-01-06] MEDS: Metoclopramide HCl 10 MG TAB PO SCH (08:16)
[2021-01-06] MEDS: Dexamethasone 4 MG TAB PO SCH (08:16)
[2021-01-06] MEDS: Famotidine 20 MG TAB PO SCH (08:16)
[2021-01-06] MEDS: Polyethylene Glycol 3350 17 GM Packet PO SCH (08:16)
[2021-01-06] MEDS: Bisacodyl 5 MG TAB PO SCH (08:17)
[2021-01-06] MEDS: Senokot S 8.6-50 MG TAB PO SCH (08:17)
[2021-01-06] MEDS: HYDROcodone/Acetaminophen 7.5/325 mg Tablet PO PRN (08:19)
[2021-01-06] MEDS: Scopolamine 1.5 mg/72 hour Patch TD SCH (08:20)
[2021-01-06 08:45] VITALS: BP 120/82; TEMP 98.5
== END 2021-01-06 10:35 | disposition home health service (06) | DRG 54 ==
LOC: ERS 11:52 → ONC 15:36 → OBSVTOIN 12-29 13:11
PROVIDERS: ADMIT Emergency Medicine; ATTEND Internal Medicine
DX: C79.31 Secondary malignant neoplasm of brain (principal); G93.6 Cerebral edema; C78.02 Secondary malignant neoplasm of left lung; Z51.5 Encounter for palliative care; C78.01 Secondary malignant neoplasm of right lung; Z20.822 Contact with and (suspected) exposure to COVID-19; F17.210 Nicotine dependence, cigarettes, uncomplicated; F10.10 Alcohol abuse, uncomplicated; D72.829 Elevated white blood cell count, unspecified; T66.XXXA Radiation sickness, unspecified, initial encounter; Z79.899 Other long term (current) drug therapy; Z85.038 Personal history of other malignant neoplasm of large intestine; Z90.49 Acquired absence of other specified parts of digestive tract
CPT/HCPCS: 36415; 70450; 77336; 77386; 77417; 80053; 83036; 83605; 83735; 85025; 93005; 96365; 96366; 96375; 96376; G0378; J1100; J1200; J1885; J2405; J2765; J8540; Q0162; S0028

== ENCOUNTER 2021-01-17 10:10 | Outpatient (CLI) | payer OTHER | END 2021-01-17 10:11 | disposition home or self-care (01) | LOC: PET 10:10 | PROVIDERS: ATTEND Internal Medicine Hematology & Oncology | DX: C20 Malignant neoplasm of rectum (principal); C79.31 Secondary malignant neoplasm of brain; C78.7 Secondary malignant neoplasm of liver and intrahepatic bile duct; C79.51 Secondary malignant neoplasm of bone; C78.01 Secondary malignant neoplasm of right lung; C78.02 Secondary malignant neoplasm of left lung; E07.89 Other specified disorders of thyroid | CPT/HCPCS: 78815; A9552 ==